=== PATIENT | male | born 1960 | race Caucasian/White ===

== ENCOUNTER → 2018-05-18 | Day surgery (SDC) | payer OTHER ==
[~2018-05-18] MED LIST: AMLODIPINE BESY10 MG PO; NORCO 5-325 TA1 EACH PO
--- NOTE | ~2018-05-18 | PROC NOTE ---
[place], [place] PROCEDURE NOTE NAME: VALENTE HITCHCOCK [facility] #: [id number] UNIT #: [id number] ROOM: DOCTOR: GEORGI MYERS MD BIRTHDATE: [birth year] DOS: 05/18/2018 PREOPERATIVE DIAGNOSIS: Posterior neck, upper back sebaceous cyst. POSTOPERATIVE DIAGNOSIS: Posterior neck, upper back sebaceous cyst. PROCEDURE: Excision of posterior neck and upper back sebaceous cyst. SURGEON: Georgi Myers M.D. NEUROPHYSIOLOGICAL TECHNICIAN: DANIELLE. ANESTHESIA: MAC with local anesthesia (14 mL of 1% plain lidocaine). INDICATIONS: This is a 57-year-old gentleman with a history of a sebaceous cyst on his posterior neck and upper back who is here for the above-mentioned procedure. The procedure and its complications were explained to the patient in detail preoperatively. Complications that were discussed included but were not limited to bleeding, infection, hematoma/seroma/abscess formation and prolonged pain. He agreed to proceed. DESCRIPTION OF PROCEDURE: After identifying the patient, the patient was brought to the operating room and placed in the right lateral position. After time-out procedure was called, IV sedation was administered and the parts were painted and draped in the usual sterile fashion. The posterior neck cyst was marked and local anesthesia was infiltrated. An incision was made in an elliptical fashion and deepened in layers. The cyst was excised in its entirety with the help of electrocautery and sent for histopathological diagnosis. Hemostasis was achieved and saline was used for irrigation. Thereafter, the subcutaneous tissue was approximated in an interrupted fashion with the help of 3-0 Vicryl and the skin edges were approximated with the help of 3-0 nylon in vertical mattress and simple fashion. Thereafter, attention was turned towards the upper back cyst. Then, the incision was marked and local anesthesia was infiltrated in an elliptical fashion. Incision was made and the cyst was excised in its entirety with the help of electrocautery and sent for histopathological diagnosis. Saline was used for irrigation and the subcutaneous tissue was then approximated with the help of 3-0 Vicryl in an interrupted fashion and the edges of the skin were approximated with the help of 3-0 nylon in an interrupted fashion. Dressing was placed in both the incision and the patient was brought back to the recovery room in stable fashion. There were no complications. Dr. Georgi Myers, the attending surgeon, was present throughout the operating case. [place], [place] PROCEDURE NOTE NAME: VALENTE HITCHCOCK UNIT #: [id number] ROOM: DOCTOR: GEORGI MYERS MD BIRTHDATE: [birth year] Georgi Myers MD CM:PROCNOTE:PROCEDURE NOTE [id number] GEORGI MYERS MD
[2018-05-18 09:50] VITALS: BP 107/46
[2018-05-18 10:03] VITALS: BP 115/45
[2018-05-18 10:04] VITALS: BP 110/45
[2018-05-18 10:21] VITALS: BP 118/50
== END | disposition home or self-care (01) ==
LOC: SDC 05-15 12:30
DX: L72.0 Epidermal cyst (principal); I10 Essential (primary) hypertension; F17.210 Nicotine dependence, cigarettes, uncomplicated; Z98.890 Other specified postprocedural states; Z79.899 Other long term (current) drug therapy

== ENCOUNTER → 2020-03-25 | Outpatient (CLI) | payer OTHER | END | disposition home or self-care (01) | LOC: COVID19 12:29 | PROVIDERS: ATTEND Family Medicine | DX: Z20.828 Contact with and (suspected) exposure to other viral communicable diseases (principal) ==

== ENCOUNTER → 2021-06-05 | Outpatient (CLI) | payer OTHER ==
[2021-06-05 11:09] LABS: HEMATOCRIT 48.6 % (42.0-52.0); MEAN CELL VOLUME 89.8 fl (80.0-94.0); MEAN CORPUSCULAR HGB 29.9 pg (27.0-31.0); MEAN CORPUSCULAR HGB CONC 33.3 g/dl (33.0-37.0); MEAN PLATELET VOLUME 8.8 fl (9.6-12.3); RED BLOOD COUNT 5.41 10*6/uL (4.50-5.90); RED CELL DISTRI WIDTH 12.5 % (0-14.5)
[2021-06-05 11:27] LABS: ALKALINE PHOSPHATASE 100 U/L (45-117); BUN 16 mg/dl (7-24); CHLORIDE 102 mmol/L (98-107); CHOLESTEROL 163 mg/dL (<200); CREATININE 0.75 mg/dL (0.70-1.30); LDL CHOLESTEROL 101 mg/dL (9-159); POTASSIUM 3.9 mmol/L (3.5-5.1); SGOT/AST 10 IU/L (3-35); SGPT/ALT 24 U/L (12-78); SODIUM 139 mmol/L (136-145); TOTAL PROTEIN 7.3 gm/dL (6.4-8.2); TRIGLYCERIDES 111 mg/dl (<150)
[2021-06-05 13:58] LABS: FREE T4 0.76 ng/dl (0.76-1.46)
[2021-06-05 14:05] LABS: VITAMIN D, 25-HYDROXY 7.9 ng/mL (30-100)
== END | disposition home or self-care (01) ==
LOC: LAB 10:52
PROVIDERS: ATTEND Family Medicine
DX: Z00.00 Encounter for general adult medical examination without abnormal findings (principal); E55.9 Vitamin D deficiency, unspecified; R53.83 Other fatigue; R63.5 Abnormal weight gain

== ENCOUNTER → 2023-06-08 | Outpatient (CLI) | payer BC | END | disposition home or self-care (01) | LOC: RESCLI 08:26 | PROVIDERS: ATTEND Student in an Organized Health Care Education/Training Program | DX: I25.10 Atherosclerotic heart disease of native coronary artery without angina pectoris (principal); K21.9 Gastro-esophageal reflux disease without esophagitis; F17.210 Nicotine dependence, cigarettes, uncomplicated; I11.0 Hypertensive heart disease with heart failure; I50.20 Unspecified systolic (congestive) heart failure; J45.909 Unspecified asthma, uncomplicated; E78.5 Hyperlipidemia, unspecified; Z79.899 Other long term (current) drug therapy; Z79.82 Long term (current) use of aspirin ==